=== PATIENT | male | born 1950 | race Caucasian/White ===

== ENCOUNTER 2023-12-25 09:48 | Day surgery (SDC) | payer MEDICARE ==
[2023-12-20 16:12] VITALS: BMI 23.3
[~2023-12-25 09:48] MED LIST: Pre Op ABX Message 1 EACH MISC MISCELLANE ONE
[2023-12-25] MEDS: LACTATED RINGERS 1,000 ML IV ONE (10:13)
[2023-12-25] MEDS ORDERED: droPERidol 5 MG/2 ML VIAL IVP ONE (10:13)
[2023-12-25] MEDS ORDERED: LACTATED RINGERS 1,000 ML IV SCH (10:13)
[2023-12-25] MEDS ORDERED: LIDOCAINE 1% (10MG/ML) FOR IV START INTRADERMA PRN (10:13)
[2023-12-25] MEDS ORDERED: HYDROmorphone 0.5 MG/0.5 ML SYRINGE IVP PRN (10:13)
[2023-12-25] MEDS ORDERED: ONDANSETRON 4 MG/2 ML VIAL ONE (10:16)
[2023-12-25] MEDS: ONDANSETRON 4 MG/2 ML VIAL IVP ONE (10:42)
[2023-12-25] MEDS: DEXAMETHASONE SOD PHOSPHATE 4 MG/ML 1 ML VIAL IV ONE (10:42)
[2023-12-25 10:47] LABS: Basophils # (A) 0.1 k/uL (0-0.2); Basophils % (A) 1 %; Eosinophils # (A) 0.6 k/uL (0-0.7); Eosinophils % (A) 9 %; HCT 41.9 % (39.0-53.0); HGB 13.9 gm/dL (13.0-17.5); Lymphocytes # (A) 1.5 k/uL (1.0-4.8); Lymphocytes % (A) 20 %; MCH 30.1 pg (25.0-35.0); MCHC 33.1 g/dL (31.0-37.0); MCV 90.7 fL (80.0-100.0); Mean Platelet Volume 7.6; Monocytes # (A) 0.6 k/uL (0-1.0); Monocytes % (A) 7 %; Neutrophils # (A) 4.5 k/uL (1.3-7.7); Neutrophils % (A) 61 %; Platelet Count 218 k/uL (150-450); RBC 4.62 m/uL (4.30-5.90); RDW 14.9 % (11.5-15.5); WBC 7.5 k/uL (3.8-10.6)
[2023-12-25] MEDS ORDERED: PROPOFOL 10 MG/ML 20 ML VIAL IV ONE (10:50)
[2023-12-25] MEDS ORDERED: fentaNYL (PF) 50 MCG/ML 2 ML AMP ONE (10:50)
[2023-12-25 11:09] VITALS: RESP 16; TEMP 97.3
[2023-12-25 11:09] LABS: African American GFR (CKD) >90 (>60 ml/min/1.73 sqM); Anion Gap 4 mmol/L; Blood Urea Nitrogen 26 mg/dL (9-20); Carbon Dioxide 24 mmol/L (22-30); Chloride 111 mmol/L (98-107); Glucose 95 mg/dL (74-99); Non-African American GFR(CKD) 88 (>60 ml/min/1.73 sqM); Potassium 4.5 mmol/L (3.5-5.1); Sodium 139 mmol/L (137-145)
[2023-12-25] MEDS: LIDOCAINE 1% INJ 10MG/ML (20 ML MDV) SQ ONE (11:11)
[2023-12-25] MEDS: BUPIVACAINE (PF) 0.5% 30 ML VIAL SQ ONE (11:11)
--- NOTE | 2023-12-25 11:27 | P.HPOR ---
History of Present Illness H&P Date: 12/24/23 Subjective: This is a 73 year old male that presents today for initial evaluation regarding a splinter that was lodged in his palm of his right hand on 12/07/2023 when he was carrying a piece of aime wood while doing some work for a boat. He went to his primary care physician where an office procedure was performed to attempt to remove the foreign body but was unsuccessful. He states he feels a sharp stabbing pain in the palm near the area of the entrance site. He denies any erythema, drainage or warmth. Physical Examination: RUE: AIN/PIN/Radial/Ulnar/Median motor intact. Radial/Ulnar/Median SILT. 2+/4 Radial/Ulnar pulses palpated. 5/5 APB, 5/5 FDI. Negative Finkelsteins, negative CMC grind, negative Durkan's compression. 1cm volar incision 1cm proximal to first webspace. No palpable mass is appreciated. Imaging: X-Rays of the right hand 3V taken in office today demonstrates no abnormality. Ultrasound performed in office demonstrates what appears to be a 1cm foreign body in the subcutaneous tissues superficial to the flexor tendon. Impression: 1.) Right hand volar foreign body Plan: Diagnosis and treatment options were discussed with the patient. He would like to proceed with right hand foreign body removal under sedation. Risks and benefits of surgery including bleeding, infection, damage to surrounding tissue, need for further surgery, residual numbness were discussed and the patient wished to go forward with surgery. The patient was agreeable with this plan. CC: Farshad Parker MD -Jean Carroll DO Orthopedic Hand/Upper Extremity Surgeon Past Medical History Past Medical History: Hyperlipidemia, Hypertension Additional Past Medical History / Comment(s): "leaky heart valve", bleeding ulcer from taking advil for an injury - hospitalized early , "EGD 1 month ago showed ulcer has completely healed" History of Any Multi-Drug Resistant Organisms: None Reported Additional Past Surgical History / Comment(s): EGD/colonoscopy Past Anesthesia/Blood Transfusion Reactions: No Reported Reaction Additional Past Anesthesia/Blood Transfusion Reaction / Comment(s): has never had general anesthesia Smoking Status: Never smoker - Past Family History Brother(s) Family Medical History: Cancer Additional Family Medical History / Comment(s): testicular cancer Medications and Allergies Home Medications Medication Instructions Recorded Confirmed Type Atorvastatin [Lipitor] 1 each PO HS 12/20/23 12/20/23 History Multivitamins, Thera [Multivitamin 1 tab PO DAILY 12/20/23 12/20/23 History (formulary)] amLODIPine BESYLATE 5 mg PO QAM 12/20/23 12/20/23 History Allergies Allergy/AdvReac Type Severity Reaction Status Date / Time No Known Allergies Allergy Verified 12/20/23 15:47 Physical Examination Osteopathic Statement: *. No significant issues noted on an osteopathic structural exam other than those noted in the History and Physical/Consult.
--- NOTE | 2023-12-25 11:27 | P.OP ---
Date of Procedure: 12/25/23 Preoperative Diagnosis: Right hand foreign body Postoperative Diagnosis: Right hand foreign body Procedure(s) Performed: Right hand foreign body removal Anesthesia: MAC Surgeon: Jean Carroll Estimated Blood Loss (ml): 0 Pathology: none sent Condition: stable Disposition: PACU Description of Procedure: This is a 73 year old male who presents today for a right hand wound exploration with foreign body removal. Risks and benefits of surgery were discussed with the patient including bleeding, damage to surrounding tissue, infection, need for further surgery as well as risks of anesthesia including pulmonary embolism and even and the patient wished to proceed with surgical intervention. The patient was seen in the pre-operative area by myself. Consent and H&P were completed and updated. The correct extremity was marked in the pre-operative area by myself and all other questions were answered. Operative Narrative: The patient was brought to the operating room by the department of anesthesia. They remained on the portable stretcher and a rolling hand table was brought to the side of the operative extremity. Pre-operative time out was performed indicating the correct patient, procedure and laterality. All in the room agreed. Pre-operative antibiotics were given prior to skin incision. The patient was then drifted off to sleep by the department of anesthesia. Median nerve block was performed with 7cc's of 0.5% Lidocaine and 1% lidocaine in a 50:50 mixture. A nonsterile tourniquet was then applied to the operative extremity and the right upper extremity was then prepped and draped in normal sterile fashion. The operative extremity was the exsanguinated with an esmarch bandage and the tourniquet was inflated to 250mmHg. 15 blade scalpel was utilized to extend the entry site located in the palm just proximal to the second webspace on the volar aspect of the hand. Blunt dissection was taken down through subcutaneous tissues and small collection of purulent fluid was present, less then 1ml around the splinter. A 1cm wooden splinter was identified sitting just superficial to the A1 marcelle of the index/middle fingers which was successfully removed. The wound was then irrigated and skin closure was performed with 4-0 nylon suture. Soft dressing was applied and tourniquet was let down and the hand had immediate perfusion. The patient was then woken by the department of anesthesia and transferred to PACU in stable condition. Jean Carroll D.O. Orthopedic Hand/Upper Extremity Surgeon
[2023-12-25 11:44] VITALS: BP 133/78; PULSE 51
== END 2023-12-25 12:06 | disposition home or self-care (01) ==
LOC: OR 09:48
PROVIDERS: ATTEND Orthopaedic Surgery Hand Surgery
DX: S60.551A Superficial foreign body of right hand, initial encounter (principal); S60.456A Superficial foreign body of right little finger, initial encounter; S60.452A Superficial foreign body of right middle finger, initial encounter; I10 Essential (primary) hypertension; E78.5 Hyperlipidemia, unspecified; Z80.49 Family history of malignant neoplasm of other genital organs; Z79.899 Other long term (current) drug therapy
CPT/HCPCS: 80048; 85025; 10121; J1100; J2405; J2001; J3010; J2704; J0665